=== PATIENT | female | born 1990 | race Caucasian/White ===

== ENCOUNTER 2019-04-29 20:49 | Observation (INO) | payer MEDICAID ==
[~2019-04-29] VITALS: Ht 152.4 cm; Wt 57.2 kg
[~2019-04-29 20:49] MED LIST: PREN-95; UNKNOWN ABX
[2019-04-29 21:33] LABS: CLARITY URINE CLEAR (CLEAR); COLOR URINE YELLOW (YELLOW); KETONES URINE 1+ (NEGATIVE); LEUKOCYTE ESTERASE URINE NEGATIVE (NEGATIVE); NITRITE URINE NEGATIVE (NEGATIVE); OCCULT BLOOD URINE NEGATIVE (NEGATIVE); PH URINE 6.5 (4.5-8.0); PROTEIN URINE TRACE (NEGATIVE); SPECIFIC GRAVITY URINE 1.033 (1.005-1.030)
[2019-04-29] MEDS ORDERED: ACETAMINOPHEN 500MG TABLET PO NR (22:15)
[2019-04-29] MEDS ORDERED: LACTATED RINGERS 1,000 ML IV SCH (22:15)
== END 2019-04-29 23:00 | disposition home or self-care (01) ==
LOC: 8 EST LDRP 20:49
PROVIDERS: ADMIT Obstetrics & Gynecology; ATTEND Obstetrics & Gynecology
DX: O26.893 Other specified pregnancy related conditions, third trimester (principal); R10.30 Lower abdominal pain, unspecified; M54.9 Dorsalgia, unspecified; Z3A.31 31 weeks gestation of pregnancy
CPT/HCPCS: 81003; 99281; G0378; 96360

== ENCOUNTER 2019-05-11 22:52 | Observation (INO) | payer MEDICAID ==
[~2019-05-11] VITALS: Ht 154.9 cm; Wt 58.1 kg
[~2019-05-11 22:52] MED LIST changes: -UNKNOWN ABX
[2019-05-11] MEDS ORDERED: LACTATED RINGERS 1,000 ML IV SCH (23:38)
[2019-05-11 23:53] LABS: CLARITY URINE CLEAR (CLEAR); COLOR URINE YELLOW (YELLOW); KETONES URINE NEGATIVE (NEGATIVE); LEUKOCYTE ESTERASE URINE 1+ (NEGATIVE); NITRITE URINE NEGATIVE (NEGATIVE); OCCULT BLOOD URINE NEGATIVE (NEGATIVE); PH URINE 6.5 (4.5-8.0); PROTEIN URINE NEGATIVE (NEGATIVE); SPECIFIC GRAVITY URINE 1.014 (1.005-1.030); UROBILINOGEN URINE 0.2 E.U./dL (0.2-1.0)
[2019-05-11] MEDS ORDERED: MAGNESIUM/ALUMINUM HYDROXIDE/SIMETHICONE 30ML UDC PO NR (23:59)
== END 2019-05-12 00:30 | disposition home or self-care (01) ==
LOC: 8 EST LDRP 22:52
PROVIDERS: ADMIT Obstetrics & Gynecology; ATTEND Obstetrics & Gynecology
DX: O21.2 Late vomiting of pregnancy (principal); O26.893 Other specified pregnancy related conditions, third trimester; R10.9 Unspecified abdominal pain; M54.9 Dorsalgia, unspecified; Z3A.33 33 weeks gestation of pregnancy
CPT/HCPCS: 81003; 99281; G0378

== ENCOUNTER 2019-05-18 23:42 | Inpatient (IN) | payer MEDICAID ==
[~2019-05-18] VITALS: Ht 154.9 cm; Wt 59.0 kg
[~2019-05-18 23:42] MED LIST changes: -PREN-95; +PREN-95 PO
[2019-05-19] VITALS (11 sets, daily range): BP systolic 93–105; BP diastolic 42–62
[2019-05-19] MEDS ORDERED: SODIUM CHLORIDE 0.9% 1,000 ML IV ONE (02:20)
[2019-05-19] MEDS ORDERED: ONDANSETRON HCL 4MG/2ML INJ IV STA (02:20)
[2019-05-19] MEDS ORDERED: ACETAMINOPHEN 325MG TABLET PO ONE (03:45)
[2019-05-19 04:02] LABS: BASOPHILS % 0.4 % (0.0-2.0); HEMATOCRIT. 22.6 % (36.0-48.0); LYMPHOCYTES % 29.9 % (20.0-50.0); MEAN CORPUSCULAR HEMOGLOBIN 23.1 pg (28.0-32.0); MEAN CORPUSCULAR VOLUME 75.6 fL (81.0-99.0); MEAN PLATELET VOLUME 8.2 fl (7.4-10.4); MONOCYTES % 7.7 % (2.0-8.0); PLATELET 239 x1000/uL (130-400); RED BLOOD CELL COUNT 2.99 mill/uL (4.2-5.4); RED CELL DISTRIBUTION WIDTH 18.2 % (11.6-14.6)
[2019-05-19 04:07] LABS: HEMOGLOBIN. 6.9 g/dL (12.0-16.0)
[2019-05-19 04:08] LABS: CHLORIDE 111 mEq/L (98-107)
[2019-05-19 06:30] LABS: CLARITY URINE CLOUDY (CLEAR); COLOR URINE YELLOW (YELLOW); KETONES URINE TRACE (NEGATIVE); LEUKOCYTE ESTERASE URINE TRACE (NEGATIVE); NITRITE URINE NEGATIVE (NEGATIVE); OCCULT BLOOD URINE NEGATIVE (NEGATIVE); PH URINE 7.5 (4.5-8.0); PROTEIN URINE TRACE (NEGATIVE); SPECIFIC GRAVITY URINE 1.024 (1.005-1.030)
[2019-05-19] MEDS ORDERED: ACETAMINOPHEN 325MG TABLET PO PRN (11:45)
[2019-05-19] MEDS ORDERED: MAGNESIUM/ALUMINUM HYDROXIDE/SIMETHICONE 30ML UDC PO PRN (11:45)
[2019-05-19 18:04] LABS: BASOPHILS % 0.8 % (0.0-2.0); EOSINOPHILS % 1.2 % (0.0-5.0); HEMATOCRIT. 28.5 % (36.0-48.0); HEMOGLOBIN. 9.2 g/dL (12.0-16.0); LYMPHOCYTES % 33.1 % (20.0-50.0); MEAN CORPUSCULAR HEMOGLOBIN 25.3 pg (28.0-32.0); MEAN CORPUSCULAR VOLUME 78.5 fL (81.0-99.0); MEAN PLATELET VOLUME 8.4 fl (7.4-10.4); MONOCYTES % 7.9 % (2.0-8.0); PLATELET 232 x1000/uL (130-400); RED BLOOD CELL COUNT 3.63 mill/uL (4.2-5.4); RED CELL DISTRIBUTION WIDTH 20.9 % (11.6-14.6)
== END 2019-05-19 20:28 | disposition home or self-care (01) | DRG 566 ==
LOC: ER 23:42 → 7WST 05-19 05:47 → ENRESERV 05-19 07:13
PROVIDERS: ADMIT Obstetrics & Gynecology; ATTEND Obstetrics & Gynecology
PROC: 30233N1 Transfusion of Nonautologous Red Blood Cells into Peripheral Vein, Percutaneous Approach (ICD-10-PCS; principal; 2019-05-19)
DX: O99.013 Anemia complicating pregnancy, third trimester (principal); O26.893 Other specified pregnancy related conditions, third trimester; D64.9 Anemia, unspecified; O99.613 Diseases of the digestive system complicating pregnancy, third trimester; K21.9 Gastro-esophageal reflux disease without esophagitis; R07.9 Chest pain, unspecified; Z3A.34 34 weeks gestation of pregnancy; Z79.899 Other long term (current) drug therapy; Z82.49 Family history of ischemic heart disease and other diseases of the circulatory system
CPT/HCPCS: 36415; 76705; 86850; 86900; 86920; 93005; 96361; 96374; 99285; J2405; J7030; J7050; P9016

== ENCOUNTER 2019-05-27 19:45 | Observation (INO) | payer MEDICAID ==
[~2019-05-27] VITALS: Ht 152.4 cm; Wt 58.1 kg
[2019-05-27] MEDS ORDERED: LACTATED RINGERS 1,000 ML IV SCH (21:45)
[2019-05-27 22:44] LABS: CLARITY URINE CLOUDY (CLEAR); COLOR URINE DARK YELLOW (YELLOW); KETONES URINE TRACE (NEGATIVE); LEUKOCYTE ESTERASE URINE 1+ (NEGATIVE); NITRITE URINE NEGATIVE (NEGATIVE); OCCULT BLOOD URINE NEGATIVE (NEGATIVE); PH URINE 7.5 (4.5-8.0); PROTEIN URINE 1+ (NEGATIVE); SPECIFIC GRAVITY URINE 1.038 (1.005-1.030)
[2019-05-27] MEDS ORDERED: FERR-71 PO (23:22)
[2019-05-27] MEDS ORDERED: CEFAZOLIN SODIUM 1000MG/VIAL IV ONE (23:30)
[2019-05-27] MEDS ORDERED: CEFAZOLIN 2000MG in DEXTROSE 5% WATER 100ML IV NR (23:30)
== END 2019-05-28 00:12 | disposition home or self-care (01) ==
LOC: 8 EST LDRP 19:45
PROVIDERS: ADMIT Obstetrics & Gynecology; ATTEND Obstetrics & Gynecology
DX: O26.893 Other specified pregnancy related conditions, third trimester (principal); Z3A.35 35 weeks gestation of pregnancy
CPT/HCPCS: 81003; 96365; 99281; G0378; J0690; J7060; 96360; 96361

== ENCOUNTER 2019-06-08 09:17 | Inpatient (IN) | payer MEDICAID ==
[~2019-06-08] VITALS: Ht 152.4 cm; Wt 59.0 kg
[~2019-06-08 09:17] MED LIST changes: +FERR-71 PO
[2019-06-08] MEDS ORDERED: LACTATED RINGERS 1,000 ML IV SCH (21:13)
[2019-06-08] MEDS ORDERED: DEXT 5%/LR + PITOCIN 20UNITS/L 1,000 ML IV SCH (21:13)
[2019-06-08] MEDS ORDERED: LIDOCAINE HCL 1% 20ML VIAL (Pyxis) INJ INFIL SCH (21:15)
[2019-06-08] MEDS ORDERED: CARBOPROST TROMETHAMINE 250 MCG/ML AMPUL IM PRN (21:15)
[2019-06-08] MEDS ORDERED: AMPICILLIN 2,000 MG in SODIUM CHLORIDE 0.9% 100 ML IV NR (21:15)
[2019-06-08] MEDS ORDERED: ONDANSETRON HCL 4MG/2ML INJ IM NR (21:15)
[2019-06-08] MEDS ORDERED: METHYLERGONOVINE MALEATE 0.2 MG/ML IM PRN (21:15)
[2019-06-08 21:34] LABS: KETONES URINE TRACE (NEGATIVE); LEUKOCYTE ESTERASE URINE TRACE (NEGATIVE); NITRITE URINE NEGATIVE (NEGATIVE); OCCULT BLOOD URINE NEGATIVE (NEGATIVE); PROTEIN URINE TRACE (NEGATIVE); SPECIFIC GRAVITY URINE 1.028 (1.005-1.030); UROBILINOGEN URINE 0.2 E.U./dL (0.2-1.0)
[2019-06-08 21:40] LABS: CLARITY URINE HAZY (CLEAR); COLOR URINE DARK YELLOW (YELLOW)
[2019-06-08 21:45] LABS: *BARBITURATES SCREEN URINE NEGATIVE (NEGATIVE); *BENZODIAZEPINES SCREEN URINE NEGATIVE (NEGATIVE); *COCAINE SCREEN URINE NEGATIVE (NEGATIVE); INR 0.9; PARTIAL THROMBOPLASTIN TIME 25.9 sec (23.4-31.0); PROTHROMBIN TIME 9.6 sec (9.6-11.0)
[2019-06-08 21:46] LABS: METHADONE URINE SCREEN NEGATIVE (NEGATIVE); OPIATES URINE SCREEN NEGATIVE (NEGATIVE); PHENCYCLIDINE URINE SCREEN NEGATIVE (NEGATIVE)
[2019-06-08 22:08] LABS: *AMPHETAMINES SCREEN URINE PRESUMTIVE POSITIVE (NEGATIVE)
[2019-06-08 22:09] LABS: CANNABINOID URINE SCREEN PRESUMTIVE POSITIVE (NEGATIVE)
[2019-06-08 22:35] LABS: BASOPHILS % 0.6 % (0.0-2.0); EOSINOPHILS % 1.1 % (0.0-5.0); HEMATOCRIT. 33.4 % (36.0-48.0); HEMOGLOBIN. 10.7 g/dL (12.0-16.0); LYMPHOCYTES % 38.9 % (20.0-50.0); MEAN PLATELET VOLUME 9.3 fl (7.4-10.4); NEUTROPHILS % 52.4 % (40.0-76.0); PLATELET 240 x1000/uL (130-400); RED BLOOD CELL COUNT 4.12 mill/uL (4.2-5.4); RED CELL DISTRIBUTION WIDTH 26.8 % (11.6-14.6)
[2019-06-08] MEDS ORDERED: DIPHENHYDRAMINE 50MG/ML VIAL IV PRN (22:45)
[2019-06-08] MEDS ORDERED: ROPIVACAINE HCL/PF EPIDURAL 200 ML EPI SCH (22:45)
[2019-06-08] MEDS ORDERED: ONDANSETRON HCL 4MG/2ML INJ IV PRN (22:45)
[2019-06-08 23:03] LABS: PLATELET ESTIMATE NORMAL
[2019-06-08 23:15] LABS: HEPATITIS B SURFACE ANTIGEN NEGATIVE
[2019-06-09] MEDS ORDERED: DEXT 5%/LR + PITOCIN 20UNITS/L 1,000 ML IV SCH (01:47)
[2019-06-09] MEDS ORDERED: RHO(D) IMMUNE GLOBULIN 300 MCG/SYR IM PRN (02:00)
[2019-06-09] MEDS ORDERED: GLYCERIN/WITCH HAZEL LEAF MEDICATED PAD TOP PRN (02:00)
[2019-06-09] MEDS ORDERED: BISACODYL 10MG SUPP PR PRN (02:00)
[2019-06-09] MEDS ORDERED: BENZOCAINE/LANOLIN/ALOE VERA SPRAY TOP PRN (02:00)
[2019-06-09] MEDS ORDERED: IBUPROFEN 400MG TABLET PO PRN (02:00)
[2019-06-09] MEDS ORDERED: ACETAMINOPHEN WITH CODEINE 300/30MG TABLET PO PRN ×2 (02:00)
[2019-06-09] MEDS ORDERED: LANOLIN OINT 7GM TUBE TOP PRN (02:00)
[2019-06-09] MEDS ORDERED: HEMORRHOIDAL SUPP PR PRN (02:00)
[2019-06-09] MEDS ORDERED: DIPHENHYDRAMINE 25MG CAPSULE PO PRN (02:00)
[2019-06-09 04:00] VITALS: BP 130/80
[2019-06-09] MEDS ORDERED: AMPICILLIN 1,000 MG in SODIUM CHLORIDE 0.9% 50 ML IV SCH (04:00)
[2019-06-09] MEDS: IBUPROFEN 800MG TABLET PO PRN ×4 (04:34→22:03)
[2019-06-09 05:00] VITALS: BP 125/76
[2019-06-09 08:00] VITALS: BP 125/54
[2019-06-09] MEDS ORDERED: PRENATAL VIT/FE FUMARATE/FA TABLET PO SCH (09:00)
[2019-06-09 15:00] VITALS: BP 105/60
[2019-06-09 19:25] VITALS: BP 109/58
[2019-06-09] MEDS: DOCUSATE SODIUM 100MG CAPSULE PO SCH (21:02)
[2019-06-09] MEDS: SIMETHICONE 80MG TABLET CHEW PO SCH (21:03)
[2019-06-09] MEDS: MAGNESIUM/ALUMINUM HYDROXIDE/SIMETHICONE 30ML UDC PO SCH (21:03)
[2019-06-10 00:12] VITALS: BP 121/76
[2019-06-10 07:28] LABS: BASOPHILS % 0.5 % (0.0-2.0); EOSINOPHILS % 1.5 % (0.0-5.0); HEMATOCRIT. 30.4 % (36.0-48.0); HEMOGLOBIN. 9.9 g/dL (12.0-16.0); LYMPHOCYTES % 45.5 % (20.0-50.0); MEAN CORPUSCULAR HEMOGLOBIN 26.5 pg (28.0-32.0); MEAN CORPUSCULAR VOLUME 81.6 fL (81.0-99.0); MEAN PLATELET VOLUME 8.9 fl (7.4-10.4); MONOCYTES % 6.3 % (2.0-8.0); NEUTROPHILS % 46.2 % (40.0-76.0); PLATELET 230 x1000/uL (130-400); RED BLOOD CELL COUNT 3.72 mill/uL (4.2-5.4); RED CELL DISTRIBUTION WIDTH 27.2 % (11.6-14.6)
[2019-06-10] MEDS ORDERED: FERROUS SULFATE 325MG TABLET PO SCH (07:30)
[2019-06-10 08:00] VITALS: BP 130/64
[2019-06-10] MEDS ORDERED: PROPOFOL 200MG/20ML VIAL IV ONE (09:18)
[2019-06-10] MEDS ORDERED: BUPIVACAINE HCL/DEXTROSE/PF 0.75% 2ML AMP INJ ONE (09:18)
[2019-06-10] MEDS ORDERED: ONDANSETRON HCL 4MG/2ML INJ ONE (09:18)
[2019-06-10] MEDS ORDERED: MIDAZOLAM HCL 2 MG/2 ML VIAL ONE (09:18)
[2019-06-10] MEDS ORDERED: FENTANYL CITRATE/PF 50MCG/ML 2ML VIAL ONE (09:18)
[2019-06-10] MEDS ORDERED: LIDOCAINE HCL/PF 1% 10 MG/ML 5ML VIAL ONE (09:22)
[2019-06-10] MEDS ORDERED: BUPIVACAINE HCL/PF 0.25% (2.5MG/ML) 10ML ONE (10:38)
[2019-06-10] MEDS ORDERED: ACETAMINOPHEN 500MG TABLET PO NR (13:15)
[2019-06-10 15:00] VITALS: BP 107/57
[2019-06-10 20:00] VITALS: BP 101/47
[2019-06-10] MEDS: MAGNESIUM/ALUMINUM HYDROXIDE/SIMETHICONE 30ML UDC PO SCH (22:43)
[2019-06-10] MEDS: DOCUSATE SODIUM 100MG CAPSULE PO SCH (22:44)
[2019-06-10] MEDS: SIMETHICONE 80MG TABLET CHEW PO SCH (22:45)
[2019-06-10] MEDS: IBUPROFEN 800MG TABLET PO PRN (22:45)
[2019-06-11] VITALS: BP 102/56
[2019-06-11 08:00] VITALS: BP 106/52
[2019-06-11 10:00] VITALS: BP 106/52
[2019-06-11] MEDS: IBUPROFEN 800MG TABLET PO PRN (10:00)
[2019-06-14 08:12] LABS: AMPHETAMINE CONF URINE Positive (.); CANNABINOID CONFIRMATION URINE Positive (.)
== END 2019-06-11 13:00 | disposition home or self-care (01) | DRG 541 ==
LOC: 8 EST LDRP 09:17 → OBSVTOIN 09:17 → UNDOADMOB 20:30 → 8EST NSY 20:30 → 8EST 06-09 02:37
PROVIDERS: ADMIT Obstetrics & Gynecology; ATTEND Obstetrics & Gynecology
PROC: 10E0XZZ Delivery of Products of Conception, External Approach (ICD-10-PCS; principal; 2019-06-10)
PROC: 0UT70ZZ Resection of Bilateral Fallopian Tubes, Open Approach (ICD-10-PCS; 2019-06-10)
PROC: 3E0R3BZ Introduction of Anesthetic Agent into Spinal Canal, Percutaneous Approach (ICD-10-PCS; 2019-06-10)
PROC: 00HU33Z Insertion of Infusion Device into Spinal Canal, Percutaneous Approach (ICD-10-PCS; 2019-06-10)
DX: O77.0 Labor and delivery complicated by meconium in amniotic fluid (principal); O99.325 Drug use complicating the puerperium; F15.90 Other stimulant use, unspecified, uncomplicated; Z37.0 Single live birth; Z3A.37 37 weeks gestation of pregnancy
CPT/HCPCS: 36415; 80305; 80307; 80349; 86592; 86703; 86762; 86850; 86900; 87340; 88302; 99281; G0378; J0290; J2250; J2405; J2590; J2704; J2795; J3010; J3490; J7050